=== PATIENT | female | born 1975 | race Caucasian/White ===

== ENCOUNTER 2018-04-04 18:26 | Inpatient (IN) | payer MEDICAID ==
[~2018-04-04] VITALS: Ht 149.9 cm; Wt 61.2 kg
--- NOTE | ~2018-04-04 | PROC ---
[address] [address] PROCEDURE REPORT Name: JEOVANNY PALMER Room: [address] ADM IN M.R.#: [id number] Admission: 04/04/18 Attend Phys: Dexter Jama, Discharge: Date of : 79 Report #: [id number] THIS REPORT FOR: //name// For GI report, please see the Provation report in Perceptive 7 content. By: [id number] Records Staff DEB /GIOVANA
[2018-04-04 18:34] VITALS: BP 139/68
[2018-04-04] MEDS ORDERED: PRENATAL PO (18:45)
[2018-04-04] MEDS ORDERED: CELEXA40 MG PO (18:45)
[2018-04-04] MEDS ORDERED: FORTEO750 MCG/3 SUBQ (18:46)
[2018-04-04] MEDS ORDERED: COLACE100 MG PO (18:46)
[2018-04-04] MEDS ORDERED: CONSTULOSE10 GM/152 PO (18:47)
[2018-04-04] MEDS ORDERED: PHENERGAN 25 MG25 M1 PO (18:47)
[2018-04-04] MEDS ORDERED: DEPAKOTE 250MG250 M1 PO (18:48)
[2018-04-04] MEDS ORDERED: BACLOFEN20 MG PO (18:49)
[2018-04-04] MEDS ORDERED: CLARITIN10 MG PO (18:49)
[2018-04-04] MEDS ORDERED: SINGULAIR 10 MG10 M1 PO (18:49)
[2018-04-04] MEDS ORDERED: HYDROCODONE-AP1 EAC6 PO (18:50)
[2018-04-04] MEDS ORDERED: NYSTATIN1 EA10 TOP (18:52)
[2018-04-04] MEDS ORDERED: DEPO-PROVE150 MG/11 IM (18:52)
[2018-04-04] MEDS ORDERED: PROAIR HFA8.5 GM INH (18:54)
[2018-04-04] MEDS ORDERED: DIAZEPAM 5 MG5 M1 PO (18:55)
[2018-04-04 19:27] LABS: ABSOLUTE EOSINOPHILS 0.1 thou/uL (0.0-0.7); ABSOLUTE LYMPHOCYTES 4.2 thou/uL (0.8-5.3); ABSOLUTE MONOCYTES 0.3 thou/uL (0.0-1.2); ABSOLUTE NEUTROPHILS 3.2 thou/uL (1.6-8.1); BASOPHILS 0.5 %; EOSINOPHILS 1.4 %; HEMATOCRIT 40.8 % (37.0-47.0); HEMOGLOBIN 13.7 gm/dL (12.0-15.0); MCH 31.7 pg (26.0-34.0); MCHC 33.6 g/dL (28.0-37.0); MCV 94.6 fL (80.0-100.0); MONOCYTES 3.9 %; MPV 8.9 fl. (7.2-11.1); NUCLEATED RBCS 0 /100WBC; PLATELET COUNT* 229 thou/uL (150-400); POLYS 41.2 %; RBC 4.31 mil/uL (4.20-5.00); RDW-CV 13.9 % (10.5-14.5); WBC 7.8 thou/uL (4.0-11.0)
[2018-04-04 19:40] LABS: APTT 29.9 Seconds (25.0-31.3); INR 1.1; PROTIME 10.7 Seconds (9.20-11.50)
[2018-04-04 19:54] LABS: CREATININE 0.4 mg/dL (0.6-1.3); POTASSIUM 3.3 mmol/L (3.5-5.1)
[2018-04-04 19:55] LABS: CALCIUM 9.4 mg/dL (8.5-10.1); TOTAL BILIRUBIN 0.1 mg/dL (<0.1-1.0); TOTAL PROTEIN 7.7 g/dL (6.4-8.2)
[2018-04-04 19:56] LABS: ALBUMIN 3.5 g/dL (3.4-5.0)
[2018-04-04 19:59] LABS: NT-PRO BRAIN NAT PEPTIDE 98 pg/mL (<300)
[2018-04-04 20:10] LABS: TROPONIN-I LEVEL <0.06 ng/mL (<0.06)
[2018-04-04 20:56] VITALS: BP 105/59
[2018-04-05 03:23] VITALS: BP 116/69
[2018-04-05 08:00] VITALS: BP 99/40
--- NOTE | 2018-04-05 14:47 | EKG ---
[place] [address] ELECTROCARDIOGRAM REPORT Name: JEOVANNY PALMER Room: [address] IN [facility].#: [id number] Admission: 04/04/18 Attend Phys: Dexter Jama, Discharge: Date of : 79 Report #: [id number] THIS REPORT FOR: //name// [facility] ED Test Date: 2018-04-04 Test Time: 20:49:38 Pat Name: JEOVANNY PALMER Department: Room: Gender: F Tenant Relations Coordinator: BALAJI : 1975 Requested By: Earl Cunha Order Number: [id number] MD: Alexx Mosher Measurements Intervals [place] Rate: 112 P: 31 MI: 126 QRS: 36 QRSD: 71 T: 13 QT: 320 QTc: 437 Interpretive Statements Sinus tachycardia No previous ECG available for comparison Electronically Signed On 04-05-2018 14:47:42 CDT by Alexx Mosher [email or web address] <ELECTRONICALLY SIGNED> By: Alexx Mosher MD, [facility] 04/05/18 1447 2049 2049 Alexx Mosher MD, FACC /EPI
[2018-04-05 17:00] VITALS: BP 101/64
[2018-04-05 23:52] VITALS: BP 112/57
[2018-04-06] VITALS (7 sets, daily range): BP systolic 99–128; BP diastolic 51–75
[2018-04-06 03:43] LABS: HEMATOCRIT 33.8 % (37.0-47.0); MCH 32.1 pg (26.0-34.0); MCHC 33.6 g/dL (28.0-37.0); MCV 95.6 fL (80.0-100.0); MPV 9.2 fl. (7.2-11.1); RBC 3.53 mil/uL (4.20-5.00); RDW-CV 13.9 % (10.5-14.5)
[2018-04-06 03:59] LABS: HEMOGLOBIN 11.4 gm/dL (12.0-15.0)
[2018-04-06 04:09] LABS: CALCIUM 8.5 mg/dL (8.5-10.1); CREATININE 0.4 mg/dL (0.6-1.3); MAGNESIUM 1.6 mg/dL (1.8-2.4)
[2018-04-07 03:35] VITALS: BP 102/51
[2018-04-07 08:45] VITALS: BP 111/58
[2018-04-07] MEDS ORDERED: PROTONIX40 M1 PO (11:50)
[2018-04-07 11:51] VITALS: BP 111/58
[2018-04-07] MEDS ORDERED: LEVAQUIN 500 M500 M2 PO (11:51)
--- NOTE | 2018-04-21 16:59 | CON ---
[address] [address] CONSULTATION Name: JEOVANNY PALMER Room: [address] IN M.R.#: [id number] Admission: 04/04/18 Attend Phys: Dexter Jama, Discharge: 04/07/18 Date of : 79 Report #: [id number] THIS REPORT FOR: //name// CC: GUSTAVO physician/PCP Dexter Jama DICTATED BY: Faith LEEP DATE OF SERVICE: 04/06/2018 PCP is unknown. Please note at the time of this dictation, the patient was seen and physically examined by myself. REASON FOR CONSULTATION: Dysphagia. HISTORY OF PRESENT ILLNESS: This is a 42-year-old female who presented to the Emergency Room after choking that worsened after she was eating [employer] and eating German fries and a burger. They have noted that she has been having some issues with choking over the last 3 weeks, mainly with solids. With water she was able to cough up, but no vomiting at that time. She also mentions that she has noticed some of her pills getting stuck as well and having difficulty going down. She denies any issues with acid reflux or bad taste in her mouth or any vomiting at this time. She has never had any endoscopy studies either. ALLERGIES: PENICILLIN. HOME MEDICATIONS: Include Celexa , Forteo, Colace, lactulose, Phenergan, Depakote, baclofen, Singulair, Claritin, hydrocodone and Depo-Provera. PAST MEDICAL HISTORY: History of CP, seizure disorder, moderate mental retardation, GERD, some constipation and asthma. PAST SURGICAL HISTORY: Negative. FAMILY HISTORY: Noncontributory. SOCIAL HISTORY: The patient lives in a retirement and makes decisions for herself at this time. No alcohol, tobacco or illegal drug use. REVIEW OF SYSTEMS: Twelve-point review of systems is essentially negative except what is mentioned in the HPI. PHYSICAL EXAMINATION: VITAL SIGNS: Temperature 37.3, pulse 72, respirations 18, blood pressure 99/52. HEART: [place] [address] CONSULTATION Name: PALMERTRENTONELLIOT Room: [address] IN [facility].#: [id number] Admission: 04/04/18 Attend Phys: Dexter Jama, Discharge: 04/07/18 Date of : 79 Report #: [id number] LUNGS: Clear. ABDOMEN: Soft, positive bowel sounds in all 4 quadrants with no masses or tenderness noted. NEUROLOGIC: The patient is articulate and answers questions appropriately. EXTREMITIES: She is able to move, but she has significant deformities of her upper and lower extremities in contractures. LABORATORY DATA: Hemoglobin 11.4, hematocrit 33.8, white count is 7, platelets 172. Sodium 139, potassium 4, chloride 107, CO2 of 23, BUN is 5, creatinine 0.4, GFR is 177, glucose 73. IMPRESSION: 1. Dysphagia. 2. Cerebral palsy. PLAN: 1. EGD today with Dr. Grossman. 2. The patient may need a swallow evaluation. 3. Further recommendations to be made once the procedure has been performed. Thank you for allowing us to participate in this patient's care. Please do not hesitate to call with any questions in regard to this consult. ADDENDUM I have personally seen and examined the patient and reviewed labs and imaging studies. This is a patient with history of cerebral palsy, who presents with dysphagia and history of GERD. There is also report of choking and occasional aspiration. We will proceed with endoscopic evaluation to further evaluate her dysphagia and choking issues. We will make further recommendation once the upper endoscopy is complete. <ELECTRONICALLY SIGNED> By: Kimberli Grossman MD 04/21/18 1659 1211 1925Kimberli Grossman MD /nt
== END 2018-04-07 14:45 | disposition home or self-care (01) | DRG 179 ==
LOC: M.ERS 18:26 → M.TBA-ER 18:49 → M.3W 18:49
PROVIDERS: Family Medicine; Physician Assistant; ADMIT Family Medicine
PROC: 0D758ZZ Dilation of Esophagus, Via Natural or Artificial Opening Endoscopic (ICD-10-PCS; principal; 2018-04-06)
DX: J69.0 Pneumonitis due to inhalation of food and vomit (principal); K21.9 Gastro-esophageal reflux disease without esophagitis; G40.909 Epilepsy, unspecified, not intractable, without status epilepticus; J45.909 Unspecified asthma, uncomplicated; G80.9 Cerebral palsy, unspecified; E87.6 Hypokalemia; K44.9 Diaphragmatic hernia without obstruction or gangrene; Z79.899 Other long term (current) drug therapy; Z88.0 Allergy status to penicillin

== ENCOUNTER 2021-08-01 19:28 | Emergency (ER) | payer MEDICAID ==
[~2021-08-01] VITALS: Ht 162.6 cm; Wt 85.3 kg
[~2021-08-01 19:28] MED LIST: BACLOFEN20 MG PO; CELEXA40 MG PO; CLARITIN10 MG PO; COLACE100 MG PO; CONSTULOSE10 GM/152 PO; DEPAKOTE 250MG250 M1 PO; DEPO-PROVE150 MG/11 IM; DIAZEPAM 5 MG5 M1 PO; FORTEO750 MCG/3 SUBQ; HYDROCODONE-AP1 EAC6 PO; LEVAQUIN 500 M500 M2 PO; NYSTATIN1 EA10 TOP; PHENERGAN 25 MG25 M1 PO; PRENATAL PO; PROAIR HFA8.5 GM INH; PROTONIX40 M1 PO; SINGULAIR 10 MG10 M1 PO
[2021-08-01] MEDS ORDERED: MACROBID 100 M100 M1 PO (20:33)
[2021-08-01 20:52] VITALS: BP 119/76
== END 2021-08-01 20:57 | disposition home or self-care (01) ==
LOC: M.ERS 19:28
DX: N39.0 Urinary tract infection, site not specified (principal); R25.2 Cramp and spasm; K21.9 Gastro-esophageal reflux disease without esophagitis; J45.909 Unspecified asthma, uncomplicated; F41.9 Anxiety disorder, unspecified; Z79.899 Other long term (current) drug therapy; Z88.0 Allergy status to penicillin